=== PATIENT | female | born 1995 | race Caucasian/White ===

== ENCOUNTER 2017-07-05 19:41 | Emergency (ER) | payer SELFPAY ==
[2017-07-05 21:44] VITALS: BP 132/74
== END 2017-07-05 21:44 | disposition home or self-care (01) ==
LOC: ED 19:41
DX: S60.412A Abrasion of right middle finger, initial encounter (principal); W26.8XXA Contact with other sharp object(s), not elsewhere classified, initial encounter; Y93.89 Activity, other specified; Y92.89 Other specified places as the place of occurrence of the external cause; Y99.8 Other external cause status
CPT/HCPCS: 90715